=== PATIENT | male | born 1970 | race Caucasian/White ===

== ENCOUNTER 2022-09-23 15:12 | Emergency (ER) | payer OTHER, SELFPAY ==
[2022-09-23 15:22] VITALS: BP 162/97; PULSE 130; RESP 18; TEMP 37.1; O2SAT 100
--- NOTE | 2022-09-23 15:43 | ED.GENADULT ---
HPI - General Adult General Chief complaint: Skin/Abscess/Foreign Body Stated complaint: Skin Sore Source: patient Mode of arrival: ambulatory Limitations: no limitations History of Present Illness HPI narrative: Patient presents for evaluation of swelling to the neck. He indicates he was working under a porch 2 days ago and noted some redness and swelling to the right anterolateral aspect of his neck. He believes he may have had an insect bite in that area. He woke from sleep this morning with swelling the cross the midline. He states he has noted some difficulty swallowing. He denies difficulty breathing. No fever, chills, nausea, vomiting. He is not diabetic. He uses methamphetamine every other day. He last smoked meth yesterday. He denies injecting meth. He does have a history of heroin abuse but states he has not used in two years. He smokes more than 1 ppd. Denies dental pain. Related Data Home Medications Medication Instructions Recorded Confirmed omeprazole magnesium 20 mg 20 mg PO DAILY 09/23/22 09/23/22 tablet,delayed release (Prilosec OTC) Allergies Allergy/AdvReac Type Severity Reaction Status Date / Time No Known Allergies Allergy Unverified 09/23/22 15:25 Review of Systems Review of Systems: CONSTITUTIONAL: Denies fever, chills, or sweats. EYES: Denies visual changes, redness, or discharge. ENT: Reports difficulty swallowing. Denies rhinorrhea, congestion, sore throat, or otalgia. CARDIOVASCULAR: Denies chest pain, palpitations, or edema. RESPIRATORY: Denies cough or dyspnea. GASTROINTESTINAL: Denies abdominal pain, nausea, vomiting, or diarrhea. GENITOURINARY: Denies dysuria or hematuria. SKIN: Reports redness to the right anterolateral aspect of the neck MUSCULOSKELETAL: Reports pain and swelling to the anterior aspect of the neck NEUROLOGIC: Denies headache, numbness, dizziness, or weakness. PSYCHIATRIC: Denies anxiety or depression. [facility] Past Medical History Medical History Substance abuse Surgical History Surgical History No pertinent past surgical history Family History Family History Mother Family history non-contributory Social History Social History Smoking packs per day: 1 Smoking cigarettes per day: 20.0 Smoking status: Current every day smoker Alcohol intake: never Substance use: current Substance use type: amphetamines Other substance usage details: previous history of heroin use Living arrangements: with family Gender identity (if verbalized by the patient): Male Sexual Orientation (if Verbalized by the Patient): Straight or Heterosexual Spiritual care concerns: No Exam Narrative: GENERAL: Well-appearing, well-nourished, and in no acute distress. HEAD: Normocephalic, atraumatic. EYES: PERRLA and EOMI. ENT: Nares clear, no rhinorrhea or epistaxis. Mucous membranes moist. Overall poor dentition. Multiple fractured necrotic teeth eroded to the gumline. Oropharynx without tonsillar hypertrophy exudate or other lesions. Bilateral TMs pearly espana nonbulging NECK: There is swelling to submental area and anterior aspect of the neck which crosses midline. There is decreased range of motion of the neck CHEST: Clear to auscultation. No respiratory distress. No wheezes rales or rhonchi HEART: Regular rate and rhythm. No murmur heard. Normal peripheral pulses. ABDOMEN: Soft, nontender, nondistended, normal active bowel sounds. EXTREMITIES: Normal range of motion. No edema. SKIN: There is a 6 x 4 cm area of raised erythema and induration to the right anterolateral aspect of the neck NEURO: No focal deficits. Alert and oriented x3. PSYCH: Normal mood and affect. Course Course Emergency Course: This i
== END 2022-09-23 15:48 | disposition short-term general hospital (02) ==
PROVIDERS: Emergency Provider Nurse Practitioner; PCP Emergency Medicine
DX: L03.221 Cellulitis of neck (principal); F17.210 Nicotine dependence, cigarettes, uncomplicated
CPT/HCPCS: 99205; G0463